=== PATIENT | male | born 1980 | race Caucasian/White ===

== ENCOUNTER 2018-05-14 16:06 | Emergency (ER) | payer SELFPAY ==
[2018-05-14 18:13] VITALS: BP 121/83
--- NOTE | 2018-05-14 20:54 | XRay Report ---
FINAL REPORT PROCEDURE: XR FOOT 2V RT TECHNIQUE: RIGHT foot radiographs, AP and lateral views. HISTORY: laceration, pain COMPARISON: No prior studies are available for comparison. FINDINGS: Fracture (s) and/or Dislocation(s): None . Alignment: Normal. Joint space(s): Normal. Soft tissues: Normal. Bone mineralization: Normal. Foreign bodies: None. Calcaneal spurring: None. IMPRESSION: Normal Examination.
[2018-05-14] MEDS ORDERED: ULTRAM PO ONE (21:22)
[2018-05-14] MEDS ORDERED: BOOSTRIX IM ONE (21:23)
--- NOTE | 2018-05-14 21:30 | Emergency Department Report ---
- General Chief Complaint: Wound/Laceration Stated Complaint: FOOT PAIN Time Seen by Provider: 05/14/18 21:12 Source: patient Mode of arrival: Ambulatory Limitations: Other - History of Present Illness Initial Comments: Patient 37-year-old male speaks fluent [place] patient states that he stepped on glass bottle today received a puncture wound from same to plantar foot mid so bleeding was controlled by direct pressure on scene patient is ambulatory on same presents today to ensure he has no glass in foot. States for the past 2/10 aching all bleeding is controlled gait is steady and unrestricted there is no numbness noted no swelling patient denies foreign body sensation Onset/Timin -: hour(s) Extremity Location: Right: Foot Place: home Patient Tetanus UTD: No Context: accidental, other (stepped on glass while) Associated Symptoms: none - Related Data Previous Rx's Medication Instructions Recorded Last Taken Type Cephalexin [Keflex] 500 mg PO TID #30 capsule 05/14/18 Unknown Rx Naproxen [Naprosyn] 500 mg PO BID PRN #30 tablet 05/14/18 Unknown Rx Neomycn/Bacitrc/Polymyx/Pramox 1 applicatio TP BID 14 Days #1 tube 05/14/18 Unknown Rx [Neosporin + Pain Relief Oint] Allergies Allergy/AdvReac Type Severity Reaction Status Date / Time No Known Allergies Allergy Unverified 05/14/18 19:35 ED Review of Systems ROS: Stated complaint: FOOT PAIN Other details as noted in HPI Constitutional: denies: chills, fever Eyes: denies: eye pain, eye discharge, vision change ENT: denies: ear pain, throat pain Respiratory: denies: cough, shortness of breath, wheezing Cardiovascular: denies: chest pain, palpitations Endocrine: no symptoms reported Gastrointestinal: denies: abdominal pain, nausea, diarrhea Genitourinary: denies: urgency, dysuria Musculoskeletal: denies: back pain, joint swelling, arthralgia Skin: change in hair/nails, other (puncture wound right plantar foot ). denies : rash, lesions Neurological: denies: headache, weakness, paresthesias Psychiatric: denies: anxiety, depression Hematological/Lymphatic: denies: easy bleeding, easy bruising ED Past Medical Hx - Past Medical History Previous Medical History?: No - Surgical History Past Surgical History?: No - Social History Smoking Status: Never Smoker Substance Use Type: Alcohol - Medications Home Medications: Home Medications Medication Instructions Recorded Confirmed Last Taken Type Cephalexin [Keflex] 500 mg PO TID #30 capsule 05/14/18 Unknown Rx Naproxen [Naprosyn] 500 mg PO BID PRN #30 tablet 05/14/18 Unknown Rx Neomycn/Bacitrc/Polymyx/Pramox 1 applicatio TP BID 14 Days #1 tube 05/14/18 Unknown Rx [Neosporin + Pain Relief Oint] ED Physical Exam - General Limitations: Other General appearance: alert, in no apparent distress - Head Head exam: Present: atraumatic, normocephalic - Eye Eye exam: Present: normal appearance - ENT ENT exam: Present: mucous membranes moist - Neck Neck exam: Present: normal inspection - Respiratory Respiratory exam: Present: normal lung sounds bilaterally. Absent: respiratory distress - Cardiovascular Cardiovascular Exam: Present: regular rate, normal rhythm. Absent: systolic murmur, diastolic murmur, rubs, gallop - GI/Abdominal GI/Abdominal exam: Present: soft, normal bowel sounds - Rectal Rectal exam: Present: deferred - Extremities Exam Extremities exam: Present: full ROM, tenderness (right foot ) - Expanded Lower Extremity Exam Right Foot/Toe exam: Present: full ROM, tenderness, puncture wound, calcaneal tenderness. Absent: laceration, ecchymosis, deformity, crepidus, dislocation, erythema, amputation, foreign body, tenderness at base of 5th metatarsal Neuro vascular tendon exam: Present: no vascular compromise Gait: Positive: observed and normal - Back Exam Back exam: Present: normal inspection - Neurological Exam Neurological exam: Present: alert, oriented X3 - Psychiatric Psychiatric exam: Present: normal affect, normal mood - Skin Skin exam: Present: warm, dry, intact, normal color. Absent: rash ED Course Vital Signs 05/14/18 18:09 Temperature 99.1 F Pulse Rate 72 Blood Pressure 121/83 O2 Sat by Pulse 98 Oximetry ED Medical Decision Making - Radiology Data Radiology results: report reviewed, image reviewed No fracture no soft tissue abnormality no foreign bodies noted on x-ray - Medical Decision Making This is a puncture wound or foreign bodies x-ray is normal plan wound care as discussed with patient approximately when necessary pain daily dressing changes and Neosporin patient given a tetanus update in the ED patient will follow with PCP assessed secondary Center in 2-3 days for wound check patient verbalized agreement and understanding with same patient was DC'd home in stable condition at this time Critical care attestation.: If time is entered above; I have spent that time in minutes in the direct care of this critically ill patient, excluding procedure time. ED Disposition Clinical Impression: Puncture wound of foot Qualifiers: Encounter type: initial encounter Laterality: right Qualified Code(s): S91.331A - Puncture wound without foreign body, right foot, initial encounter Disposition: DC-01 TO HOME OR SELFCARE Is pt being admited?: No Does the pt Need Aspirin: No Condition: Good Instructions: Puncture Wound (ED) Prescriptions: Cephalexin [Keflex] 500 mg PO TID #30 capsule Naproxen [Naprosyn] 500 mg PO BID PRN #30 tablet PRN Reason: pain Neomycn/Bacitrc/Polymyx/Pramox [Neosporin + Pain Relief Oint] 1 applicatio TP BID 14 Days #1 tube Referrals: [facility] [Outside] - 3-5 Days Forms: Work/School Release Form(ED) Time of Disposition: 21:38
== END 2018-05-14 21:50 | disposition home or self-care (01) ==
LOC: ED 16:06
DX: S91.331A Puncture wound without foreign body, right foot, initial encounter (principal); W25.XXXA Contact with sharp glass, initial encounter; Y93.89 Activity, other specified; Y92.009 Unspecified place in unspecified non-institutional (private) residence as the place of occurrence of the external cause; Y99.8 Other external cause status
CPT/HCPCS: 90471; 90715; 99283